=== PATIENT | female | born 1955 | race Two or more races ===

== ENCOUNTER 2020-05-17 08:10 | Emergency (ER) | payer MEDICAID ==
[~2020-05-17] VITALS: Ht 167.6 cm; Wt 113.0 kg
[2020-05-17] MEDS ORDERED: HYDROCODONE/ACETAMINOPHEN 5/325MG TABLET PO ONE (08:30)
[2020-05-17 10:40] VITALS: BP 173/90
== END 2020-05-17 11:36 | disposition home or self-care (01) ==
LOC: ER 08:10
DX: G89.29 Other chronic pain (principal); I10 Essential (primary) hypertension; Z98.890 Other specified postprocedural states; Z88.0 Allergy status to penicillin; Z88.1 Allergy status to other antibiotic agents
CPT/HCPCS: 71045; 99283